=== PATIENT | female | born 1940 | race Native Hawaiian/Other Pacific Islander ===

== ENCOUNTER 2020-11-05 17:15 | Outpatient (CLI) | payer OTHER | END 2020-11-05 19:00 | disposition home or self-care (01) | LOC: RAD 17:15 | PROVIDERS: ATTEND Internal Medicine | DX: R07.89 Other chest pain (principal); R06.02 Shortness of breath ==

== ENCOUNTER 2021-11-02 15:31 | Outpatient (CLI) | payer OTHER | END 2021-11-02 18:50 | disposition home or self-care (01) | LOC: CT 15:31 | PROVIDERS: ATTEND Internal Medicine | DX: R51.9 Headache, unspecified (principal); S00.83XA Contusion of other part of head, initial encounter; Y92.9 Unspecified place or not applicable ==

== ENCOUNTER 2022-01-01 13:01 | Outpatient (CLI) | payer OTHER | END 2022-01-01 19:10 | disposition home or self-care (01) | LOC: RAD 13:01 | PROVIDERS: ATTEND Nurse Practitioner Family | DX: E55.9 Vitamin D deficiency, unspecified (principal); E56.8 Deficiency of other vitamins; M06.4 Inflammatory polyarthropathy; M85.89 Other specified disorders of bone density and structure, multiple sites ==

== ENCOUNTER 2022-02-04 13:01 | Outpatient (CLI) | payer OTHER | END 2022-02-04 19:26 | disposition home or self-care (01) | LOC: RAD 13:01 | PROVIDERS: ATTEND Nurse Practitioner Family | DX: E55.9 Vitamin D deficiency, unspecified (principal); E56.8 Deficiency of other vitamins; M06.4 Inflammatory polyarthropathy; M85.89 Other specified disorders of bone density and structure, multiple sites; M25.552 Pain in left hip; M54.51 Vertebrogenic low back pain ==

== ENCOUNTER 2022-06-21 12:18 | Outpatient (CLI) | payer OTHER | END 2022-06-21 20:22 | disposition home or self-care (01) | LOC: RAD 12:18 | PROVIDERS: ATTEND Internal Medicine | DX: R07.81 Pleurodynia (principal); M25.532 Pain in left wrist; W19.XXXA Unspecified fall, initial encounter ==